=== PATIENT | female | born 1965 | race Caucasian/White ===

== ENCOUNTER → 2019-11-01 16:36 | Outpatient (CLI) | payer BC, SELFPAY ==
--- NOTE | 2019-11-01 16:41 | US_ITS ---
STUDY: RENAL ULTRASOUND - COMPLETE REASON FOR EXAM: Female, 54 years old. UTI''S TECHNIQUE: Ultrasound evaluation of the kidneys was performed with real-time and static perez-scale imaging. COMPARISON: None. FINDINGS: Aorta: Visualized portions of abdominal aorta are normal in diameter. IVC: Visualized portions appear patent. Right kidney: Measures 10.9 cm. Normal contour. Renal cortical thickness appears normal. No cysts. No masses, stones, or hydronephrosis identified. Left kidney: Duplicated collecting system morphology. Measures 12.1 cm. Normal contour. Renal cortical thickness appears normal. 1.5 cm cyst. No masses, stones, or hydronephrosis identified. Bladder: No intrinsic masses, stones, or abnormal dilatation noted. 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 No renal stones or evidence for obstruction identified. Electronically Signed: Hayden Gamez, at 19:46 EDT Tel , Service support ,
== END ==
PROVIDERS: PCP Family Medicine; Referring Provider Urology; Visit Provider Urology
DX: N39.0 Urinary tract infection, site not specified (principal); N10 Acute pyelonephritis
CPT/HCPCS: 76770

== ENCOUNTER 2021-02-28 09:57 | Outpatient (CLI) | payer BC, SELFPAY | END 2021-02-28 23:59 | disposition short-term general hospital (02) | LOC: LABSPEC 09:58 | PROVIDERS: PCP Family Medicine; Referring Provider Physician Assistant; Visit Provider Physician Assistant | DX: Z11.52 Encounter for screening for COVID-19 (principal) | CPT/HCPCS: 87635; U0003; U0005 ==

== ENCOUNTER → 2022-03-27 | Outpatient (CLI) | payer BC, SELFPAY ==
--- NOTE | 2022-03-27 12:46 | VDLE_ITS ---
Reason For Study: Calf Pain RIGHT LEFT GSV is normal. CFV is compressible, spontaneous, phasic, CFV is compressible, spontaneous, phasic, competent, and demonstrates normal competent and demonstrates normal augmentation. augmentation. FV is compressible, spontaneous, phasic, competent and demonstrates normal augmentation. POP V is compressible, spontaneous, phasic, competent and demonstrates normal augmentation. T/P Trunk is compressible. PTV is compressible. RT PerV is compressible. Procedure This is a venous duplex using B-mode, color flow and spectral Doppler. Exam performed in department. The exam was diagnostic. The study was technically difficult. A preliminary report was called and/or faxed to Shelley MARTINEZ at Dr. Duran's office. VL/Venous Duplex US, Unilateral Interpretation Summary Deep veins of the right lower extremity are patent and compressible segmentally . There is no evidence of right lower extremity deep vein thrombosis. Valvular competence rajesh ears intact within the proximal deep venous system on the right . The right great saphenous vein a ppears patent and compressible segmentally. The left common femoral vein is patent and competent. Ordering Physician: Shelley Coronado Referring Physician: Shelley Coronado Performed By: Diego Peter RVT
== END | disposition home or self-care (01) ==
LOC: CVS 12:44
PROVIDERS: PCP Family Medicine; Referring Provider Physician Assistant; Visit Provider Physician Assistant
DX: M79.662 Pain in left lower leg (principal); M79.661 Pain in right lower leg; M79.89 Other specified soft tissue disorders
CPT/HCPCS: 93971